=== PATIENT | male | born 1960 | race Caucasian/White ===

== ENCOUNTER 2018-07-27 17:03 | Emergency (ER) | payer MEDICAID ==
[2018-07-27 17:23] VITALS: BP 114/73
--- NOTE | 2018-07-27 17:51 | EDPHY ---
General - History Smoking Status: Unknown if ever smoked Time Seen by Provider: 07/27/18 17:04 Narrative: I have evaluated and participated in the management of this patient. My co- signature indicates that I have reviewed this chart and that I agree with the findings and the plan of care as documented. My personal history and physical findings include: I evaluated this patient at approximately 8:00 p.m.. He awakened to voice. He stated that he was drunk. He had a frequent loose cough with normal pulse ox and normal lung exam--no rales, rhonchi, or wheezing. He tells me that he smokes quite a bit. He is moving all 4 extremities well spontaneously. At the end of my evaluation I felt that he could safely be [facility] and he will be transported by the police department. (Neeta Arceo) CHIEF COMPLAINT: Alcohol intoxication HISTORY OF PRESENT ILLNESS: Patient presents by EMS and is seen at time of arrival with complaints of alcohol intoxication from EMS. Patient will not provide any complaints himself. EMS reports that [employer] contacted due to the patient being found intoxicated in public. They report they had difficulty arousing the patient foot that his vital signs reportedly normal. The patient will not provide any complaints of any kind he just continues to tell me to " fuck off" while extending his right middle finger. He will not provide any complaints, associated complaints or modifying factors. There is a very strong odor of alcohol about him. No other associated complaints or modifying factors REVIEW OF SYSTEMS: 10 systems were reviewed and negative with the exception of the elements mentioned in the history of present illness. PCP: Unknown SPECIALISTS: Unknown PAST MEDICAL HISTORY: Unknown PAST SURGICAL HISTORY: Unknown SOCIAL HISTORY: Unknown. Reportedly homeless FAMILY HISTORY: Unknown EXAMINATION: General Appearance: Somnolent but awakes easily. No distress. Strong odor of alcohol about him. Unclean closed. Head: normocephalic, atraumatic. No Black sign. No raccoon eyes. No outward signs of trauma or injury Eyes: Pupils equal and round, no conjunctival pallor or injection. No nystagmus. ENT, Mouth: Mucous membranes moist. Poor dentition. Airway is patent with strong gag reflex Neck: Normal inspection, supple, non-tender Respiratory: Lungs are clear to auscultation Cardiovascular: Regular rate and rhythm Gastrointestinal: Abdomen is soft and nontender Back: non-tender, no bony abnormalities Neurological: Alert. Strong gag reflex. Excellent strength in the upper lower extremities. Ambulatory without ataxia Skin: Warm and dry, no rash. Unclean skin. Extremities: Nontender, no pedal edema Psychiatric: Mood and affect normal DIFFERENTIAL DIAGNOSES: Including but not limited to acute alcohol intoxication, alcohol dependency, MDM: 5:00 p.m. Acute alcohol intoxication suspected by strong odor of alcohol and admission of patient to alcohol ingestion today. He is intoxicated and not yet ambulatory. He is awake intermittently. He wakes easily with verbal commands. He is protecting his airway with a strong gag reflex. His oxygenation is strong when awake but does have some mild hypoxemia when he sleeps, thus he is on 2 L nasal cannula. Will continue to monitor him. 6:20 p.m. Patient re-evaluated. Still appears to be intoxicated and is somnolent but wakes with verbal cues only. Vital signs remained stable on 2 L nasal cannula. Not yet ambulatory. 7:30 p.m. Patient re-evaluated. He continues to be verbally abusive to the staff but is awaking spontaneously with no signs of injury. He still not provide any complaints. 8:30 p.m. Patient has been evaluated Dr. Arceo. She states that he is awake and conversing but still verbally abusive. He has ambulated in the emergency department with no difficulty. I do feel he is stable for discharge [facility]. He is not on an arc hold, but [employer] will transport him directly. He is discharged in stable condition. SUPERVISION: Patient was evaluated and examined in conjunction with my secondary supervising physician as documented. We have both examined the patient. CONSULTATION: None (Johnie Fabian) - Objective Vital Signs: Initial Vital Signs Temperature (C) 93.2 F L 07/27/18 17:03 Heart Rate 88 07/27/18 17:03 Respiratory Rate 14 07/27/18 17:03 Blood Pressure 114/73 07/27/18 17:03 O2 Sat (%) 90 L 07/27/18 17:03 O2 Delivery Mode Room Air O2 (L/minute) 4 Allergies/Adverse Reactions: Unable to Assess Allergy (Unverified 07/27/18 17:15) Home Medications: Medication Instructions Recorded Unobtainable 07/27/18 Departure - Departure Disposition: Home, Routine, Self-Care Clinical Impression: Alcoholic intoxication Qualifiers: Complication of substance-induced condition: uncomplicated Qualified Code(s): F10.920 - Alcohol use, unspecified with intoxication, uncomplicated Condition: Good Instructions: Alcohol Intoxication (ED), Abuse of Alcohol (ED) Referrals: NONE *PRIMARY CARE P,. [Primary Care Provider] - As per Instructions [facility],. [Clinic] - As per Instructions [facility] 24 Hours [Outside] - As per Instructions
== END 2018-07-27 21:03 | disposition home or self-care (01) ==
LOC: EDBD 17:03
DX: F10.920 Alcohol use, unspecified with intoxication, uncomplicated (principal); Z59.0 Homelessness